=== PATIENT | male | born 1985 | race Caucasian/White ===

== ENCOUNTER 2019-01-04 13:38 | Emergency (ER) | payer OTHER ==
[2019-01-04] MEDS: ACETAMINOPHEN 325 MG TAB PO (16:36)
== END 2019-01-04 18:02 | disposition home or self-care (01) ==
LOC: E/R 13:38
DX: S00.81XA Abrasion of other part of head, initial encounter (principal); F10.929 Alcohol use, unspecified with intoxication, unspecified; R40.2142 Coma scale, eyes open, spontaneous, at arrival to emergency department; R40.2362 Coma scale, best motor response, obeys commands, at arrival to emergency department; R40.2252 Coma scale, best verbal response, oriented, at arrival to emergency department; R94.02 Abnormal brain scan; W18.39XA Other fall on same level, initial encounter; Y92.9 Unspecified place or not applicable
CPT/HCPCS: 70450; 99284-25